=== PATIENT | female | born 1990 | race African-American/Black ===

== ENCOUNTER 2024-07-22 11:58 | Emergency (ER) | payer OTHER ==
[~2024-07-22] VITALS: Ht 167.6 cm; Wt 59.0 kg
[2024-07-22 12:01] VITALS: BP 126/84; PULSE 113; RESP 12; TEMP 98.3; O2SAT 99
[2024-07-22] MEDS: CYCLOBENZAPRINE 10MG TABLET PO ONE (12:34)
[2024-07-22] MEDS ORDERED: CYCL10TA21 MT (13:21)
[2024-07-22] MEDS ORDERED: IBUP-2029 MT (13:21)
== END 2024-07-22 13:40 | disposition left against medical advice (07) ==
LOC: ER 11:58
DX: M54.6 Pain in thoracic spine (principal); V49.49XA Driver injured in collision with other motor vehicles in traffic accident, initial encounter; Y93.89 Activity, other specified; Y92.89 Other specified places as the place of occurrence of the external cause; Y99.8 Other external cause status
CPT/HCPCS: 99283